=== PATIENT | female | born 1990 | race Two or more races ===

== ENCOUNTER → 2017-12-04 | Outpatient (CLI) | payer BC ==
[~2017-12-04] MED LIST: SINCALIDE (KINEVAC) 5 MCG ONE
== END ==
LOC: CFH 09:07
PROVIDERS: ATTEND Surgery
DX: R10.9 Unspecified abdominal pain (principal)
CPT/HCPCS: 76700; 78227; A9537; J2805

== ENCOUNTER 2018-02-14 08:23 | Day surgery (SDC) | payer BC ==
[~2018-02-14] VITALS: Ht 175.3 cm; Wt 84.2 kg
[2018-02-14 08:57] VITALS: BP 130/84
[2018-02-14] MEDS ORDERED: DENIES (08:59)
[2018-02-14] MEDS ORDERED: LACTATED RINGERS 1,000 ML IV SCH (08:59)
[2018-02-14 09:12] LABS: HCG UR SG 1.032 (1.003-1.030)
[2018-02-14] MEDS ORDERED: INDOCYANINE GREEN 25 MG VIAL ONE (09:23)
[2018-02-14] MEDS ORDERED: EPINEPHRINE 1 MG/ML, 1ML ONE (09:23)
[2018-02-14] MEDS ORDERED: BUPIVACAINE/PF 0.25% ONE (09:23)
[2018-02-14] MEDS ORDERED: MIDAZOLAM 1 MG/ML, 5ML ONE (09:40)
[2018-02-14] MEDS ORDERED: FENTANYL PF 250 MCG/5ML ONE (09:40)
[2018-02-14] MEDS ORDERED: GABAPENTIN 300 MG CAPSULE PO ONE (10:00)
[2018-02-14] MEDS ORDERED: TAMSULOSIN 0.4 MG CAP.ER.24H PO ONE (10:00)
[2018-02-14] MEDS ORDERED: METOCLOPRAMIDE 10MG TABLET PO ONE (10:00)
[2018-02-14] MEDS ORDERED: ACETAMINOPHEN 500 MG TABLET PO ONE (10:00)
[2018-02-14] MEDS ORDERED: FAMOTIDINE 20 MG TABLET PO ONE (10:00)
[2018-02-14] MEDS ORDERED: GLYCOPYRROLATE 0.2MG/1ML, 5ML ONE (10:12)
[2018-02-14] MEDS ORDERED: LIDOCAINE-MPF 2% ,5ML ONE (10:12)
[2018-02-14] MEDS ORDERED: DEXAMETHASONE 4 MG/ML, 5ML ONE (10:12)
[2018-02-14] MEDS ORDERED: PROPOFOL 10 MG/ML, 20ML ONE (10:12)
[2018-02-14] MEDS ORDERED: NEOSTIGMINE 1 MG/ML, 10ML ONE (10:12)
[2018-02-14] MEDS ORDERED: SUCCINYLCHOLINE 20 MG/ML, 10ML ONE (10:12)
[2018-02-14] MEDS ORDERED: CEFAZOLIN 1,000 MG ONE (10:12)
[2018-02-14] MEDS ORDERED: ROCURONIUM 10 MG/ML,10ML ONE (10:12)
[2018-02-14] MEDS ORDERED: ONDANSETRON 2MG/ML, 2ML ONE (10:12)
[2018-02-14] MEDS ORDERED: LIDOCAINE 4%, 4 ML SYR/CANN TP ONE (10:12)
[2018-02-14] MEDS ORDERED: MORPHINE SULFATE 4 MG/ML, 1ML IVPush PRN (11:00)
[2018-02-14] MEDS ORDERED: ALBUTEROL SULFATE 2.5 MG/3 ML NPPB PRN (11:00)
[2018-02-14] MEDS ORDERED: OXYcodone 5 MG/5 ML ORAL.SOL UDC PO PRN ×2 (11:00)
[2018-02-14] MEDS ORDERED: HYDROmorphone 2 MG/ML, 1ML IVPush PRN (11:00)
[2018-02-14] MEDS ORDERED: PROMETHAZINE 25 MG/ML, 1ML IV PRN (11:00)
[2018-02-14] MEDS ORDERED: MEPERIDINE/PF 25MG/0.5ML IVPush PRN (11:00)
[2018-02-14] MEDS ORDERED: FENTANYL PF 100 MCG/2ML ONE (11:50)
[2018-02-14] MEDS ORDERED: OXYcodone 5 MG/5 ML ORAL.SOL UDC ONE (11:50)
[2018-02-14] MEDS: FENTANYL PF 100 MCG/2ML IV PRN ×2 (11:52→12:00)
== END 2018-02-14 14:00 ==
LOC: OUT 08:23
PROVIDERS: ATTEND Surgery
DX: K80.10 Calculus of gallbladder with chronic cholecystitis without obstruction (principal)
CPT/HCPCS: 47562; 81025; 88304; J0171; J0330; J0690; J1100; J2250; J2405; J2704; J2710; J3010; J3490; J7120; S2900